=== PATIENT | female | born 1990 | race African-American/Black ===

== ENCOUNTER 2019-05-11 18:51 | Emergency (ER) | payer OTHER, SELFPAY ==
[2019-05-11 19:00] VITALS: BP 117/77; PULSE 99; RESP 18; TEMP 37.5; O2SAT 100
[2019-05-11 21:45] VITALS: BP 120/80; PULSE 98; RESP 20; TEMP 37.3; O2SAT 99
--- NOTE | 2019-05-11 23:52 | ED.FEVER ---
HPI - Fever General Chief Complaint: Fever Stated Complaint: Cold symptoms Time Seen by Provider: 05/11/19 20:43 Source: patient Mode of arrival: ambulatory Limitations: no limitations History of Present Illness HPI Narrative: 28 yo female who presents with c/o cold symptoms starting yesterday. She states she developed runny nose, nasal congestion, cough, and intermittent sore throat yesterday. She also reports dizziness which has resolved. She denies fever, vomiting. She denies sick contacts or recent travel. She is concerned about her symptoms since she has a young child at home. elicited complaint: fever Related Data Home Medications Medication Instructions Recorded Confirmed [id number] fum,uc-govfp-ahh 1 cap PO DAILY 01/05/19 01/05/19 Allergies Allergy/AdvReac Type Severity Reaction Status Date / Time No Known Allergies Allergy Verified 05/11/19 19:19 Review of Systems Review of Systems: All systems reviewed & are unremarkable except as noted in HPI and below Constitutional: Constitutional: Denies chills, Denies fatigue and Denies fever(s) ENT: Reports dizziness, Reports nasal congestion and Reports sore throat Cardiovascular: Cardiovascular: Denies chest pain and Denies rapid heart rate Gastrointestinal: Gastrointestinal: Denies abdominal pain, Denies diarrhea and Denies vomiting Genitourinary: Genitourinary: Denies hematuria and Denies nocturia Musculoskeletal: Musculoskeletal: Reports myalgias PMFSH Past Medical History Medical History (Updated 05/12/19 @ 00:03 by Radha Mchugh MD) Healthy adult Surgical History Surgical History (Updated 05/12/19 @ 00:01 by Radha Mchugh MD) No pertinent past surgical history Social History Social History (Updated 05/12/19 @ 00:01 by Radha Mchugh MD) Smoking status: Never smoker Substance use: never Gender identity (if verbalized by the patient): Female Exam Narrative: Exam Narrative: GENERAL: well-nourished, and in no acute distress. HEAD: Normocephalic, atraumatic EYES: PERRLA and EOMI, conjunctiva clear without discharge EARS: TM's clear bilaterally without erythema or dullness THROAT:Mucous membranes moist, Oropharynx normal without erythema, exudate, peritonsillar swelling or fluctuance NECK: Supple, without lymphadenopathy or mass RESPIRATORY: No respiratory distress, Airway patent, Respirations non-labored, Clear to auscultation without rales, rhonchi or wheeze HEART: Regular rate and rhythm. No murmur heard. Normal peripheral pulses. ABDOMEN: Soft, nontender, nondistended, normal active bowel sounds. No masses. No rebound or guarding, No organomegaly. EXTREMITIES: No edema, normal strength with full range of motion. SKIN: Warm, dry, normal color without rash NEURO: Alert and oriented x3. CN 2-12 grossly intact. No focal deficits. PSYCH: Normal mood and affect. HENMT: General nose exam: Abnormal mucous membranes and turbinates present boggy Course Course Emergency Course: I Discussed with patient that influenza test was negative at this time. Due to early symptoms she request tamiflu as test may be false negative. Vital Signs Vital signs: Vital Signs Temperature 99.5 F 05/11/19 19:00 Pulse Rate 99 05/11/19 19:00 Respiratory Rate 18 05/11/19 19:00 Blood Pressure 117/77 05/11/19 19:00 Pulse Oximetry 100 05/11/19 19:00 Temperature 99.1 F 05/11/19 21:45 Pulse Rate 98 05/11/19 21:45 Respiratory Rate 20 05/11/19 21:45 Blood Pressure 120/80 05/11/19 21:45 Pulse Oximetry 99 05/11/19 21:45 MDM - Fever Lab Data Labs: Influenza A Screen Negative Reference Range: Negative Influenza B Screen Negative Reference Range: Negative Discharge Plan Discharge Clinical Impression: Viral infection Patient Disposition: Home, Self-Care Condition: Stable Instructions: Antibiotic Form, Viral Syndrome (ED
== END 2019-05-11 21:46 | disposition home or self-care (01) ==
PROVIDERS: Emergency Provider General Practice
DX: B34.9 Viral infection, unspecified (principal)
CPT/HCPCS: 87804; 99283

== ENCOUNTER 2020-02-08 09:52 | Outpatient (CLI) | payer OTHER, SELFPAY ==
--- NOTE | 2020-02-08 | ECG_ITS ---
Measurements Intervals [place] Rate: 60 P: 32 CO: 153 QRS: 61 QRSD: 82 T: 46 QT: 370 QTc: 372 Interpretive Statements SINUS RHYTHM WITH SINUS ARRHYTHMIA RSR' IN V1 OR V2, CONSIDER RIGHT VENTRICULAR HYPERTROPHY OR RIGHT VCD BORDERLINE ECG Electronically Signed On 02-08-2020 10:34:21 [employer]URAL HISTORY COLLECTIONS CURATOR by Jeffrey Murphy D.O.
== END 2020-02-08 09:53 | disposition home or self-care (01) ==
PROVIDERS: Visit Provider Obstetrics & Gynecology
DX: O26.90 Pregnancy related conditions, unspecified, unspecified trimester (principal); Z3A.00 Weeks of gestation of pregnancy not specified
CPT/HCPCS: 93005

== ENCOUNTER 2020-06-17 05:38 | Observation (INO) | payer OTHER, SELFPAY ==
--- NOTE | ~2020-06-17 | US_ITS ---
EXAMINATION: US OB limited DATE: 06/17/2020 09:00 INDICATION: Positive fibronectin during third trimester , assess cervical length TECHNIQUE: Real-time ultrasound of the pelvis was performed. The interpreting radiologist was not pre sent for the study. COMPARISON: None. FINDINGS: There is a single living fetus in vertex presentation. The placenta is posterior. car diac activity and movement are noted. heart rate is 154 beats per minute (bpm). The cervi liza length is 2.9 cm. IMPRESSION: 1. Single living fetus in vertex presentation. 2. Cervical length is 2.9 cm. Reviewed, dictated and finalized at location B.
[2020-06-17 06:15] VITALS: BP 99/63; PULSE 101
[2020-06-17 06:32] VITALS: BMI 18.1
--- NOTE | 2020-06-17 06:32 | OBADM ---
This patient, Azucena Medina, admitted to the OB room OB Post 116 for observation. Patient/family oriented to hospital policies and general routines including ID bracelet, bed and alarms, visiting hours, pain management, procedures, bathroom and other care routines, personal items, smoking policy, room service/diet, and visiting hours. Patient/Family are encouraged to report perceived risks to care and to ask questions if they do not understand what they are told or what they should do.
[2020-06-17 06:46] LABS: Add Urine Microscopic? NO; Appearance Urine Clear (Clear); Bilirubin Urine Negative (Negative); Blood Urine Negative (Negative); Color Urine Straw (Yellow); Glucose Urine UA Negative (Negative); Ketones Urine Negative (Negative); Leukocyte Esterase Ur Negative LEU/UL (NEGATIVE); Nitrate Urine Negative (Negative); Protein Urine Negative (Negative); Specific Grav Ur 1.005 (1.001-1.035); Urobilinogen Urine Negative mg/dL (<2.0)
[2020-06-17] MEDS: TERBUTALINE SULFATE 1 MG/ML VIAL 0.25 MG SUB-Q ×2 (07:10→08:23)
--- NOTE | 2020-06-17 07:53 | P.PNOB_ITS ---
OB - Triage/Final Diagnosis Visit Information Date of evaluation: 06/17/20 Reason for evaluation: threatened labor Comments/Additional reasons for admission: I have assessed the risk for this patient, Azucena Medina, and determined that she would benefit from observation care. Evaluation Laboratory results: Laboratory Tests 06/17/20 06:25 Urine Color Straw Urine Appearance Clear Urine pH 7.0 Ur Specific [place] 1.005 Urine Protein Negative Urine Glucose (UA) Negative Urine Ketones Negative Ur Blood (Man) Negative Urine Nitrate Negative Urine Bilirubin Negative Urine Urobilinogen Negative Ur Leukocyte Esterase Negative Vital signs: Vital Signs - 24 hr 06/17/20 06:15 Pulse Rate 101 H Blood Pressure 99/63 L
[2020-06-17 08:09] LABS: Fetal Fibronectin Positive
[2020-06-17] MEDS: NIFEdipine 10 MG CAPSULE PO (09:25)
[2020-06-17] MEDS: BETAMETHASONE SOD PHOS/ACETATE 30 MG/5 ML VIAL 12 MG IM (09:25)
[2020-06-17 09:26] VITALS: BP 72/54; PULSE 106
[2020-06-17 09:27] VITALS: BP 100/49; PULSE 111
== END 2020-06-17 12:05 | disposition home or self-care (01) ==
PROVIDERS: Admitting Provider Obstetrics & Gynecology; Visit Provider Obstetrics & Gynecology
DX: O47.03 False labor before 37 completed weeks of gestation, third trimester (principal); Z3A.32 32 weeks gestation of pregnancy
CPT/HCPCS: 76815; 81003; 82731; 87086; 96372; A9270; G0378; G0379; J0702; J3105

== ENCOUNTER 2020-08-01 07:27 | Inpatient (IN) | payer OTHER, SELFPAY ==
[2020-08-01] VITALS (111 sets, daily range): BP systolic 78–123; BP diastolic 36–90; PULSE 54–168; RESP 15–18; TEMP 36.7–36.9; O2SAT 86–100; BMI 18.6
--- NOTE | 2020-08-01 07:27 | PM.IMHP ---
H&P: HPI History of Present Illness Date/Time: 08/01/20 07:27 29-year-old 2 para 1 whose last menstrual period was 10/13/2019, EDC is 08/08/2020, confirmed by 12 week ultrasound presents at term for induction of labor. Her cervix is favorable. Early ultrasound confirms dates. Risks and benefits of induction reviewed Chief Complaint: mil Review of Systems Review of Systems: All systems reviewed & are unremarkable except as noted in HPI and below PMFSH Past Medical History Medical History Healthy adult Surgical History Surgical History No pertinent past surgical history Family History Family History Grandparent Diabetes mellitus Social History Social History Smoking status: Never smoker Substance use: never Gender identity (if verbalized by the patient): Female Spiritual care concerns: No Meds Home Medications and Allergies Home Medications Medication Instructions Recorded Confirmed Type [id number] fum,do-ajrzl-xso 1 cap PO DAILY 01/05/19 06/17/20 History nifedipine 10 mg PO Q4-6H PRN #60 cap 06/17/20 Rx Allergies Allergy/AdvReac Type Severity Reaction Status Date / Time No Known Allergies Allergy Verified 07/09/20 13:47 Exam Const: General: no acute distress Eyes: General: appearance normal, both eyes and all related structures Neck: Neck: supple and no JVD Thyroid: thyroid normal Resp: Effort & Inspection: normal respiratory effort Auscultation: clear to auscultation bilaterally Cardio: Rate: regular rate Rhythm: regular rhythm GI: Inspection: non-distended GI Palp: Yes Soft to palpation, No Tenderness to palpation present (GI) and No Guarding due to palpation present (GI) Auscultation: normal bowel sounds : External Female Exam: normal external appearance Speculum Exam - Vagina: normal appearance of the vagina Bimanual exam- vagina & uterus: enlarged ( gravid soft uterus. heart tones are reassuring) Skin: General skin exam: no rashes or lesions noted Extrem: General: normal to inspection and no edema Psych: Mental Status: mental status grossly normal Affect: normal affect Assessment and Plan Additional Plan impression: 39 week with favorable cervix Plan: Medical induction of labor. Spontaneous vaginal is expected. She is an epidural candidate
--- NOTE | 2020-08-01 07:48 | WPDOBADMIT ---
Obstetrics - Admit Note Admission Note: record reviewed. No pertinent additions to the history and/or any subsequent changes in the physical findings that are not consistent with the expected course of the were found. Additions to the history and/or subsequent changes in the physical findings follow. None. cervix . AROM clear. FHTs reassuring.
[2020-08-01] MEDS: OXYTOCIN 30 UNITS/NS 500 ML 30 UNITS/500 ML BAG IV CONT (08:00)
[2020-08-01] MEDS: LACTATED RINGERS 1,000 ML 125 ML IV CONT ×3 (08:00→10:13)
[2020-08-01 08:07] LABS: Basophils Percent Auto 0.4 % (0.2-1.2); Eosinophils Absolute Auto 0.3 K/mm3 (0-0.3); Eosinophils Percent Auto 5.3 % (0-4.4); Hematocrit 32.1 % (37.0-47.0); Hemoglobin 10.2 g/dL (12.0-15.0); Immature Granulocyte Absolute 0.05 K/mm3 (0.00-0.031); Lymphocytes Percent Auto 29.4 % (18.3-44.2); Mean Corpuscular HGB Conc 31.8 g/dl (32-36); Mean Corpuscular Hemoglobin 25.2 pg (26-34); Mean Corpuscular Volume 79.3 fl (80-100); Mean Platelet Volume 10.9 fl (7.4-10.4); Monocytes Absolute Auto 0.7 K/mm3 (0.1-0.6); Monocytes Percent Auto 13.5 % (2.6-8.5); Neutrophils Absolute Auto 2.6 K/mm3 (1.3-6.7); Neutrophils Percent Auto 50.4 % (45.5-73.1); Platelet Count Result 171 k/mm3 (150-375); Red Blood Count 4.05 M/mm3 (4.2-5.4); Red Cell Distribution Width 16.4 % (11.5-14.5); White Blood Count 5.1 K/mm3 (4.5-10.0)
--- NOTE | 2020-08-01 08:25 | LDADM ---
This patient, Azucena Medina, was admitted to Labor/Delivery/Recovery 107 on 08/01/20 at 07:27. Plans for labor, pain management and were discussed with patient. Patient/family oriented to hospital policies and general routines including ID bracelet, bed and alarms, visiting hours, pain management, procedures, bathroom and other care routines, personal items, smoking policy, room service/diet and guest tray routines, infant security routines, and visiting hours. Patient/Family are encouraged to report perceived risks to care and to ask questions if they do not understand what they are told or what they should do. See OBIX for further documentation.
--- NOTE | 2020-08-01 10:05 | WPDANESEPPF ---
Anes - Initial Pre Proc Eval Procedure: Labor Epidural Date/Time: 08/01/20 10:05 Surgeon: Andrea Goins MD Pre Op Diagnosis: iol Patient Data Age: 30 Gender: F Height: Weight: Last Vital Signs Pulse 75 08/01/20 09:16 BP 107/73 08/01/20 09:16 Allergies Allergy/AdvReac Type Severity Reaction Status Date / Time No Known Allergies Allergy Verified 07/09/20 13:47 Home Medications Medication Instructions Recorded Confirmed Type [id number] fum,mz-yjkyh-hvl 1 cap PO DAILY 01/05/19 06/17/20 History nifedipine 10 mg PO Q4-6H PRN #60 cap 06/17/20 Rx Laboratory Tests 08/01/20 08/01/20 08/01/20 07:58 07:58 07:58 WBC 5.1 K/mm3 K/mm3 (4.5-10.0) RBC 4.05 M/mm3 L M/mm3 (4.2-5.4) Hgb 10.2 g/dL L g/dL (12.0-15.0) Hct 32.1 % L % (37.0-47.0) MCV 79.3 fl L fl (80-100) MCH 25.2 pg L pg (26-34) MCHC 31.8 g/dl L g/dl (32-36) RDW 16.4 % H % (11.5-14.5) Plt Count 171 k/mm3 k/mm3 (150-375) MPV 10.9 fl H fl (7.4-10.4) Immature Gran % (Auto) 1.0 % H % (0-0.5) Neut % (Auto) 50.4 % % (45.5-73.1) Lymph % (Auto) 29.4 % % (18.3-44.2) [place] % (Auto) 13.5 % H % (2.6-8.5) Eos % (Auto) 5.3 % H % (0-4.4) Baso % (Auto) 0.4 % % (0.2-1.2) Lymph # (Auto) 1.50 K/mm3 K/mm3 (0.9-3.2) [place] # (Auto) 0.7 K/mm3 H K/mm3 (0.1-0.6) Eos # (Auto) 0.3 K/mm3 K/mm3 (0-0.3) Baso # (Auto) 0.0 K/mm3 K/mm3 (0.0-0.1) Abs Immat Gran (auto) 0.05 K/mm3 H K/mm3 (0.00-0.031) Absolute Neuts (auto) 2.6 K/mm3 K/mm3 (1.3-6.7) Absolute Nucleated RBC 0.0 K/mm3 K/mm3 (0.0-0.012) Nucleated RBC % 0.0 % % (0.0-0.2) RPR Pending Blood Type O Positive Antibody Screen Negative Patient hx anesthesia problems: none Family hx anesthesia problems: none PMFSH Past Medical History Medical History (Updated 08/01/20 @ 10:06 by Gregory Marcano CRNA) Healthy adult Surgical History Surgical History No pertinent past surgical history Family History Family History Grandparent Diabetes mellitus Social History Social History Smoking status: Never smoker Substance use: never Gender identity (if verbalized by the patient): Female Spiritual care concerns: No Anes - Eval Final PreProcedure Day of Procedure 08/01/20 10:05 Informed Consent: The patient's anesthetic plan and its attendant risks and benefits were discussed with the patient/family/POA. Questions were solicited and answers provided to the satisfaction of the patient/family/POA.
--- NOTE | 2020-08-01 11:31 | P.PNOB_ITS ---
OB - PN: Subj Subjective Date/time seen: 08/01/20 11:31 rn exam 5 cm fhts reassuring OB - PN: Obj Data Labs CBC & Chem 7: 08/01/20 07:58 Labs: Laboratory Results - last 24 hr 08/01/20 08/01/20 07:58 07:58 WBC 5.1 RBC 4.05 L Hgb 10.2 L Hct 32.1 L MCV 79.3 L MCH 25.2 L MCHC 31.8 L RDW 16.4 H Plt Count 171 MPV 10.9 H Immature Gran % (Auto) 1.0 H Neut % (Auto) 50.4 Lymph % (Auto) 29.4 [place] % (Auto) 13.5 H Eos % (Auto) 5.3 H Baso % (Auto) 0.4 Lymph # (Auto) 1.50 [place] # (Auto) 0.7 H Eos # (Auto) 0.3 Baso # (Auto) 0.0 Abs Immat Gran (auto) 0.05 H Absolute Neuts (auto) 2.6 Absolute Nucleated RBC 0.0 Nucleated RBC % 0.0 Blood Type O Positive Antibody Screen Negative OB - PN A/P Time Spent With Patient Time: Total time spent is greater than 50% in coordination of care (as documented) at patient's floor/unit and/or counseling patient:
--- NOTE | 2020-08-01 14:35 | PM.OBPRVD ---
OB - Delivery Note Procedure Delivery date: 08/01/20 Procedure: mil Intrapartal events: None Induction method: AROM Delivery augmentation: pitocin Delivery monitor: external FHT Route of delivery: Episiotomy description: None Laceration Description: None Specimen: No Quantitative Blood Loss (ml): 58 Anesthesia type: Epidural Disposition: floor Complications: nuchal x 1 Baby Date of : 08/01/20 Time of : 14:28 Weeks of gestation at delivery: 39 gender: Male presentation: vertex position: Right Occiput Anterior Placenta delivery description: Spontaneous cord vessel description: 3 Vessels and Nuchal Cord score one minute: 9 score five minutes: 9
[2020-08-01] MEDS: OXYTOCIN 30 UNITS/NS 500 ML 30 UNITS/500 ML BAG 125 UNITS IV CONT (15:02)
--- NOTE | 2020-08-01 16:54 | PC.NURSE ---
Patient transferred to post room #284 via wheelchair. Support person present. Oriented to unit, room, information board, rooming in, admission packet and security measures. Patient verbalizes understanding.
[2020-08-01] MEDS: IBUPROFEN 600 MG TABLET (17:25)
[2020-08-02] MEDS: IBUPROFEN 600 MG TABLET PO ×2 (00:19→09:26)
[2020-08-02 05:10] VITALS: BP 116/78; PULSE 57; RESP 12; TEMP 36.8; O2SAT 100
[2020-08-02 05:47] LABS: Hematocrit 28.5 % (37.0-47.0); Hemoglobin 8.7 g/dL (12.0-15.0)
--- NOTE | 2020-08-02 06:38 | PM.OBPNVD ---
OB - PN: Subj Subjective Date/time seen: 08/02/20 06:38 Patient comments: no complaints and pain well controlled OB - PN: Obj Data Labs CBC & Chem 7: 08/02/20 05:17 Labs: Laboratory Results - last 24 hr 08/01/20 08/01/20 08/02/20 07:58 07:58 05:17 WBC 5.1 RBC 4.05 L Hgb 10.2 L 8.7 L Hct 32.1 L 28.5 L MCV 79.3 L MCH 25.2 L MCHC 31.8 L RDW 16.4 H Plt Count 171 MPV 10.9 H Immature Gran % (Auto) 1.0 H Neut % (Auto) 50.4 Lymph % (Auto) 29.4 [place] % (Auto) 13.5 H Eos % (Auto) 5.3 H Baso % (Auto) 0.4 Lymph # (Auto) 1.50 [place] # (Auto) 0.7 H Eos # (Auto) 0.3 Baso # (Auto) 0.0 Abs Immat Gran (auto) 0.05 H Absolute Neuts (auto) 2.6 Absolute Nucleated RBC 0.0 Nucleated RBC % 0.0 Blood Type O Positive Antibody Screen Negative OB - PN A/P Plan day: 1 Plan: routine care, discharge home and follow up 6 weeks Time Spent With Patient Time: Total time spent is greater than 50% in coordination of care (as documented) at patient's floor/unit and/or counseling patient: Time with patient: less than 15 minutes Review of Systems Review of Systems: All systems reviewed & are unremarkable except as noted in HPI and below Exam Const: General: no acute distress Eyes: General: appearance normal, both eyes and all related structures Neck: Neck: supple and no JVD Thyroid: thyroid normal Resp: Effort & Inspection: normal respiratory effort Auscultation: clear to auscultation bilaterally Cardio: Rate: regular rate Rhythm: regular rhythm GI: Inspection: non-distended GI Palp: Yes Soft to palpation, No Tenderness to palpation present (GI) and No Guarding due to palpation present (GI) Auscultation: normal bowel sounds : General: Yes bladder normal to palpation External Female Exam: normal external appearance Speculum Exam - Vagina: normal vaginal discharge and No vaginal bleeding Speculum Exam - Cervix: nontender Bimanual exam- vagina & uterus: bladder normal to palpation and No Cervical tenderness present OB/external & speculum: No vaginal bleeding Skin: General skin exam: no rashes or lesions noted Extrem: General: normal to inspection and no edema Psych: Mental Status: mental status grossly normal Affect: normal affect
--- NOTE | 2020-08-02 06:39 | PM.DS ---
DS: Admitting Diagnosis Admitting Diagnosis Admitting Diagnosis: term iup DS: Summary Hospital Course Hospital Course: Patient was admitted for induction of labor. She underwent successful spontaneous vaginal delivery. Her hospital course was unremarkable. She was bottle feeding, eating, ambulating, voiding without difficulty and general without complaints. Time Spent with Patient Time attestation: Total time spent providing and/or coordinating discharge services: Exam Const: General: no acute distress Eyes: General: appearance normal, both eyes and all related structures Neck: Neck: supple and no JVD Thyroid: thyroid normal Resp: Effort & Inspection: normal respiratory effort Auscultation: clear to auscultation bilaterally Cardio: Rate: regular rate Rhythm: regular rhythm GI: Inspection: non-distended GI Palp: Yes Soft to palpation, No Tenderness to palpation present (GI) and No Guarding due to palpation present (GI) Auscultation: normal bowel sounds : General: Yes bladder normal to palpation External Female Exam: normal external appearance Speculum Exam - Vagina: normal vaginal discharge and No vaginal bleeding Speculum Exam - Cervix: nontender Bimanual exam- vagina & uterus: bladder normal to palpation and No Cervical tenderness present OB/external & speculum: No vaginal bleeding Skin: General skin exam: no rashes or lesions noted Extrem: General: normal to inspection and no edema Psych: Mental Status: mental status grossly normal Affect: normal affect DS: Data Data Completed and Pending Labs on day of discharge: Labs from last 24 hours 08/02/20 08/01/20 08/01/20 05:17 07:58 07:58 WBC RBC Hgb 8.7 L Hct 28.5 L MCV MCH MCHC RDW Plt Count MPV Immature Gran % (Auto) Neut % (Auto) Lymph % (Auto) [place] % (Auto) Eos % (Auto) Baso % (Auto) Lymph # (Auto) [place] # (Auto) Eos # (Auto) Baso # (Auto) Abs Immat Gran (auto) Absolute Neuts (auto) Absolute Nucleated RBC Nucleated RBC % RPR Pending Blood Type O Positive Antibody Screen Negative 08/01/20 07:58 WBC 5.1 RBC 4.05 L Hgb 10.2 L Hct 32.1 L MCV 79.3 L MCH 25.2 L MCHC 31.8 L RDW 16.4 H Plt Count 171 MPV 10.9 H Immature Gran % (Auto) 1.0 H Neut % (Auto) 50.4 Lymph % (Auto) 29.4 [place] % (Auto) 13.5 H Eos % (Auto) 5.3 H Baso % (Auto) 0.4 Lymph # (Auto) 1.50 [place] # (Auto) 0.7 H Eos # (Auto) 0.3 Baso # (Auto) 0.0 Abs Immat Gran (auto) 0.05 H Absolute Neuts (auto) 2.6 Absolute Nucleated RBC 0.0 Nucleated RBC % 0.0 RPR Blood Type Antibody Screen Discharge Plan Discharge Attending physician on discharge: Andrea Goins Discharging Clinician: Andrea Goins Patient Disposition: Home, Self-Care Activity: may shower, no straining and pelvic rest Diet: heart healthy Wound Care Instructions: follow printed instructions Patient Instructions: Antibiotic Form Stand Alone Forms: General Discharge Information Follow-up/Referrals: Andrea Goins MD [Physician] - Discharge Medications: Continued [id number]-[id number] fum,wb-hmryr-bum 32-1.25-110 mg Capsule 1 cap PO DAILY RF: 0 Discontinued nifedipine 10 mg Capsule 10 mg PO Q4-6H PRN (Reason: CONTRACTIONS ) Qty: 60 RF: 0 Date of admission: 08/01/20 07:27 Primary Care Provider: PHYSICIAN,DISTRIBUTION DISPATCHER Admitting Provider: Andrea Goins Attending physician on admission: Andrea Goins Condition: Stable
[2020-08-02 06:46] LABS: Rapid Plasma Reagin Non-Reactive (NonReactive)
[2020-08-02 09:00] VITALS: BP 99/72; PULSE 64; RESP 18; TEMP 36.7; O2SAT 100
[2020-08-02] MEDS: POLYSACCHARIDE IRON COMPLEX 150 MG CAPSULE PO (09:26)
[2020-08-02] MEDS: DOCUSATE SODIUM 100 MG CAPSULE PO (09:26)
--- NOTE | 2020-08-02 09:47 | WPDANLDPN2 ---
Anes-Prog Note L&D Date/Time: 08/02/20 09:47 Comfortable throughout: labor and delivery Neuraxial method: epidural Epidural/Spinal procedure site: clean & non-tender Neuro status: Neuro function grossly intact. Cardiovascular status: normal Respiratory status: normal Airway patency: baseline Mental status: baseline Post-Op hydration status: normal Vital Signs: Last Vital Signs Temp 36.8 C 08/02/20 05:10 Pulse 57 L 08/02/20 05:10 Resp 12 08/02/20 05:10 BP 116/78 08/02/20 05:10 Pulse Ox 100 08/02/20 05:10 Pain score (VAS): 03/17 Post-procedural complaints: none Patient feedback: Patient satisfied with anesthetic care.
[2020-08-02 11:30] VITALS: BP 103/73; PULSE 69; RESP 18; TEMP 36.7; O2SAT 100
[2020-08-05 14:38] VITALS: BP 106/67; PULSE 69; RESP 16; TEMP 36.8; O2SAT 99
== END 2020-08-02 19:15 | disposition home or self-care (01) | DRG 560 ==
LOC: ANHLDR 07:31 → ANHOB2 16:55
PROVIDERS: Admitting Provider Obstetrics & Gynecology; Visit Provider Obstetrics & Gynecology
DX: O69.81X0 Labor and delivery complicated by cord around neck, without compression, not applicable or unspecified (principal); Z37.0 Single live birth; Z3A.39 39 weeks gestation of pregnancy; O36.8330 Maternal care for abnormalities of the fetal heart rate or rhythm, third trimester, not applicable or unspecified
CPT/HCPCS: 36415; 85014; 85018; 85025; 86592; 86850; 86900; 86901; A9270; J2590; J7120

== ENCOUNTER 2022-05-30 14:22 | Emergency (ER) | payer OTHER, SELFPAY ==
--- NOTE | ~2022-05-30 | XR_ITS ---
XR chest 2V DATE: 05/30/2022 16:26 INDICATION: Left-sided chest pain for one month TECHNIQUE: PA and lateral views COMPARISON: None FINDINGS: Normal heart size. No hilar or mediastinal enlargement. No pulmonary infiltrate or consolid ation, pleural effusion or pulmonary vascular congestion or pneumothorax. Mild thoracic dextroscoliosis. IMPRESSION: No active cardiopulmonary disease Reviewed, dictated and finalized at location A.
[2022-05-30 14:54] VITALS: BP 118/86; PULSE 83; RESP 16; TEMP 36.6; O2SAT 98
--- NOTE | 2022-05-30 14:57 | ECG_ITS ---
Measurements Intervals [place] Rate: 85 P: 73 CT: 158 QRS: 64 QRSD: 82 T: 53 QT: 326 QTc: 388 Interpretive Statements SINUS RHYTHM INCOMPLETE RIGHT BUNDLE BRANCH BLOCK BASELINE ARTIFACT- I, III, AVL BORDERLINE ECG COMPARED TO ECG 02/08/2020 10:17:37 NO SIGNIFICANT CHANGES Electronically Signed On 05-30-2022 16:34:52 CDT by Jeffrey FISCHER
[2022-05-30 16:34] LABS: Basophils Percent Auto 0.6 % (0.2-1.2); Eosinophils Absolute Auto 0.3 K/mm3 (0-0.3); Eosinophils Percent Auto 5.1 % (0-4.4); Hematocrit 38.7 % (37.0-47.0); Hemoglobin 12.3 g/dL (12.0-15.0); Immature Granulocyte Absolute 0.01 K/mm3 (0.00-0.031); Immature Granulocyte Percent A 0.2 % (0-0.5); Lymphocytes Absolute Auto 1.52 K/mm3 (0.9-3.2); Mean Corpuscular HGB Conc 31.8 g/dl (32-36); Mean Corpuscular Hemoglobin 26.4 pg (26-34); Mean Platelet Volume 10.4 fl (7.4-10.4); Monocytes Absolute Auto 0.6 K/mm3 (0.1-0.6); Neutrophils Absolute Auto 2.5 K/mm3 (1.3-6.7); Neutrophils Percent Auto 50.1 % (45.5-73.1); Platelet Count Result 283 k/mm3 (150-375); Red Blood Count 4.66 M/mm3 (4.2-5.4); Red Cell Distribution Width 14.1 % (11.5-14.5); White Blood Count 4.9 K/mm3 (4.5-10.0)
--- NOTE | 2022-05-30 16:42 | PC.NURSE ---
Pt educated on vaginal swab collection at this time and shown to bathroom. Pt verbalized understanding at this time.
[2022-05-30 16:44] LABS: Alanine Aminotransferase 24 U/L (6-35); Albumin Level 4.3 g/dL (3.5-5.1); Alkaline Phosphatase 78 U/L (38-126); Anion Gap 8 mmol/L (8-16); Aspartate Amino Transferase 32 U/L (14-36); Bilirubin,Total 0.8 mg/dL (0.2-1.3); Blood Urea Nitrogen 12 mg/dL (7-17); Calcium 9.1 mg/dL (8.4-10.2); Carbon Dioxide 26 mmol/L (22-30); Chloride 105 mmol/L (98-107); Estimated CRCL calculation 50 ml/min; Estimated Glomerular Filt Rate > 60; Glucose 89 mg/dL (65-110); Potassium 3.7 mmol/L (3.4-5.0); Sodium 139 mmol/L (137-145)
--- NOTE | 2022-05-30 16:44 | ED.GENADULT ---
HPI - General Adult General Chief complaint: [employer] Stated complaint: chest pain/vaginal discharge Time Seen by Provider: 05/30/22 16:00 History of Present Illness HPI narrative: 32-year-old female no medical problems presents to the emergency room with multiple complaints. Patient states that she has experienced intermittent chest pain for 1 month. States pain occasionally will radiate to the back. Denies any shortness of breath or dizziness. States the pain last up to 30 minutes at a time. Pain is not aggravated by lying flat or eating. Patient also complains of clear foul-smelling vaginal discharge for 3 weeks. States there is concern for an STI. Related Data Home Medications Medication Instructions Recorded Confirmed [id number] fm,ps 32 1 cap PO DAILY 01/05/19 06/17/20 mg-folic acid 1.25 mg-dha 110 mg capsule Allergies Allergy/AdvReac Type Severity Reaction Status Date / Time No Known Allergies Allergy Verified 05/30/22 15:51 Review of Systems Review of Systems: CONSTITUTIONAL: Denies fever, chills, or sweats. EYES: Denies visual changes, redness, or discharge. ENT: Denies rhinorrhea, congestion, sore throat, or otalgia. CARDIOVASCULAR: Reports chest pain RESPIRATORY: Denies cough or dyspnea. GASTROINTESTINAL: Denies abdominal pain, nausea, vomiting, or diarrhea. GENITOURINARY: Reports vaginal discharge SKIN: Denies rash or itching. MUSCULOSKELETAL: Denies back pain, joint pain, or myalgia. NEUROLOGIC: Denies headache, numbness, dizziness, or weakness. PSYCHIATRIC: Denies anxiety or depression. PMFSH Past Medical History Medical History Healthy adult Surgical History Surgical History No pertinent past surgical history Family History Family History Grandparent Diabetes mellitus Social History Social History Smoking status: Never smoker Substance use: never Gender identity (if verbalized by the patient): Female Spiritual care concerns: No Exam Narrative: GENERAL: Well-appearing, well-nourished, no physical limitations, and in no acute distress. HEAD: Normocephalic, atraumatic. EYES: Conjunctivae normal, PERRLA and EOMI. CHEST: Clear to auscultation. No respiratory distress. No wheezes rales or rhonchi. No tenderness. HEART: Regular rate and rhythm. No murmur heard. Normal peripheral pulses. ABDOMEN: Soft, nontender, nondistended, normal active bowel sounds. : Deferred female exam. EXTREMITIES: Normal range of motion. No edema. No clubbing or cyanosis SKIN: Warm, dry, no rash. No noted wounds NEURO: No focal deficits. Alert and oriented x3. MAEW. CN's II-XI intact bilaterally, normal gait PSYCH: Cooperative. Normal mood and affect. Course Vital Signs Vital signs: Vital Signs Temperature 36.6 C 05/30/22 14:54 Pulse Rate 83 05/30/22 14:54 Respiratory Rate 16 05/30/22 14:54 Blood Pressure 118/86 05/30/22 14:54 Pulse Oximetry 98 05/30/22 14:54 Temperature 36.6 C 05/30/22 14:54 Pulse Rate 83 05/30/22 14:54 Respiratory Rate 16 05/30/22 14:54 Blood Pressure 118/86 05/30/22 14:54 Pulse Oximetry 98 05/30/22 14:54 Medical Decision Making MDM Narrative Medical decision making narrative: 32-year-old female no medical problems presenting with multiple medical complaints. Patient stated that she had been having intermittent chest pain for over 1 month. Described the pain as a sharp stabbing pain that radiated into her back and was present for up to 30 minutes at a time. EKG showed no signs of active ischemia. Troponin was negative. Lab work was unremarkable. Chest pain is likely related to GERD. Recommended patient take Maalox when she was experiencing the symptoms and follow-up with her PCP. Patient was als
[2022-05-30 16:55] LABS: Troponin I < 0.012 ng/mL (0.000-0.034)
[2022-05-30 17:00] LABS: Appearance Urine Clear (Clear); Bacteria Urine None Seen /hpf; Bilirubin Urine Negative (Negative); Blood Urine Negative (Negative); Color Urine Yellow (Yellow); Glucose Urine UA Negative (Negative); Ketones Urine Trace mg/dL (Negative); Leukocyte Esterase Ur 1+ LEU/UL (Negative); Need Manual Microscopic Reviewed; Nitrate Urine Negative (Negative); Non Pathogenic Casts 0-2; Protein Urine 1+ mg/dL (Negative); RBC Urine 0-2 /hpf (0-2); Specific Grav Ur 1.024 (1.001-1.035); Squamous Epithelial Cell Urine None seen /hpf (Few); Urobilinogen Urine 0.2 mg/dL (<2.0); pH Urine 5.5 (5.0-9.0)
[2022-05-30 17:17] LABS: Add Urine Microscopic? YES
[2022-05-30 18:03] VITALS: BP 101/74; PULSE 69; RESP 16; TEMP 37.1; O2SAT 100
[2022-05-30] MEDS: cefTRIAXone 1 GM VIAL 0.5 GM IM (18:18)
[2022-05-30] MEDS: metroNIDAZOLE 250 MG TABLET 2000 MG PO (18:18)
[2022-05-30] MEDS: WATER, STERILE FOR INJECTION 10 ML VIAL XX (18:18)
== END 2022-05-30 18:31 | disposition home or self-care (01) ==
PROVIDERS: Emergency Provider Nurse Practitioner Family
DX: K21.9 Gastro-esophageal reflux disease without esophagitis (principal); N89.8 Other specified noninflammatory disorders of vagina; Z72.51 High risk heterosexual behavior
CPT/HCPCS: 36415; 71046; 80053; 81001; 81025; 84484; 85025; 87086; 87491; 87591; 93005; 96372; 99283; A9270; J0696

== ENCOUNTER 2023-06-17 07:08 | Inpatient (IN) | payer OTHER, SELFPAY ==
[2023-06-17] VITALS (67 sets, daily range): BP systolic 92–129; BP diastolic 50–88; PULSE 64–252; RESP 16–18; TEMP 36.6–36.9; O2SAT 96–100
--- NOTE | 2023-06-17 07:29 | PM.IMHP ---
H&P: HPI History of Present Illness Date/Time: 06/17/23 07:29 Chief Complaint: term with positive group B strep Narrative: 33-year-old 3 para 2 at 38 weeks gestation with positive group B strep for induction of labor. has been uncomplicated. The cervix is favorable PMFSH Past Medical History Medical History Healthy adult Surgical History Surgical History No pertinent past surgical history Family History Family History Grandparent Diabetes mellitus Social History Social History Smoking status: Never smoker Substance use: never Gender identity (if verbalized by the patient): Female Spiritual care concerns: No Meds Home Medications and Allergies Home Medications Medication Instructions Recorded Confirmed Type No Home Medications 05/24/23 05/24/23 History Allergies Allergy/AdvReac Type Severity Reaction Status Date / Time No Known Allergies Allergy Verified 05/24/23 15:29 Exam Const: General: cooperative, healthy appearing and comfortable Nutritional Appearance: average body habitus Orientation/consciousness: oriented to person, oriented to place and oriented to time Resp: Effort & Inspection: normal respiratory effort Cardio: Rate: regular rate Rhythm: regular rhythm Heart sounds: S1 normal heart sound present and S2 normal heart sound present GI: Inspection: normal to inspection ( soft gravid uterus) : External Female Exam: normal external appearance Speculum Exam - Vagina: normal appearance of the vagina Speculum Exam - Cervix: normal appearance of the cervix ( cervix 4/75/1. FHTs were reassuring) Assessment and Plan Assessment and plan (1) Term : Code(s): Z34.90 - Encounter for supervision of normal , unspecified, unspecified trimester Status: Acute (2) Positive testing for group B Streptococcus: Code(s): B95.1 - Streptococcus, group B, as the cause of diseases classified elsewhere Status: Acute Plan medical induction of labor. Group B strep prophylaxis. Spontaneous vaginal delivery expected. She is an epidural candidate
[2023-06-17] MEDS: AMPICILLIN 2 GM/NS 100 ML 2 GM/100 ML BAG IVPB (07:45)
[2023-06-17 07:47] LABS: Basophils Percent Auto 0.5 % (0.2-1.2); Eosinophils Absolute Auto 0.3 K/mm3 (0-0.3); Eosinophils Percent Auto 4.6 % (0-4.4); Hematocrit 30.5 % (37.0-47.0); Hemoglobin 9.4 g/dL (12.0-15.0); Immature Granulocyte Absolute 0.05 K/mm3 (0.00-0.031); Immature Granulocyte Percent A 0.8 % (0-0.5); Lymphocytes Absolute Auto 1.21 K/mm3 (0.9-3.2); Lymphocytes Percent Auto 20.4 % (18.3-44.2); Mean Corpuscular HGB Conc 30.8 g/dl (32-36); Mean Corpuscular Hemoglobin 22.8 pg (26-34); Mean Platelet Volume 11.9 fl (7.4-10.4); Monocytes Absolute Auto 0.9 K/mm3 (0.1-0.6); Monocytes Percent Auto 15.7 % (2.6-8.5); Neutrophils Absolute Auto 3.4 K/mm3 (1.3-6.7); Platelet Count Result 176 k/mm3 (150-375); Red Blood Count 4.12 M/mm3 (4.2-5.4); Red Cell Distribution Width 15.4 % (11.5-14.5); White Blood Count 5.9 K/mm3 (4.5-10.0)
[2023-06-17 08:02] LABS: Platelet Estimate Adequate (Adequate); Poikilocytosis 1+
--- NOTE | 2023-06-17 08:02 | LDADM ---
This patient, Azucena Medina, was admitted to Labor/Delivery/Recovery 104 on 06/17/23 at 07:08. Plans for labor, pain management and were discussed with patient. Patient/family oriented to hospital policies and general routines including ID bracelet, bed and alarms, visiting hours, pain management, procedures, bathroom and other care routines, personal items, smoking policy, room service/diet and guest tray routines, infant security routines, and visiting hours. Patient/Family are encouraged to report perceived risks to care and to ask questions if they do not understand what they are told or what they should do. See OBIX for further documentation.
[2023-06-17 08:03] LABS: Schistocytes Rare; Tear Drop Cells 1+
[2023-06-17] MEDS: LACTATED RINGERS 1,000 ML 125 ML IV CONT ×2 (08:28→12:27)
[2023-06-17 08:39] LABS: Rubella IgG Antibody 44.5 IU/ML
[2023-06-17 09:01] LABS: Rapid Plasma Reagin Non-Reactive (NonReactive)
[2023-06-17] MEDS: OXYTOCIN 30 UNITS/NS 500 ML 30 UNITS/500 ML BAG IV CONT (10:32)
--- NOTE | 2023-06-17 11:45 | WPDANESEPP ---
Anes - Eval Pre Procedure Procedure: labor epidural Date/Time: 06/17/23 11:45 Surgeon: Matilde Miranda Preop Diagnosis: Pain during labor Pre Op Diagnosis: IOL Patient Data Age: 33 Gender: F Height: 1.65 m Weight: 54.5 kg Last Vital Signs Temp 36.9 C 06/17/23 10:00 Pulse 85 06/17/23 08:02 BP 108/74 06/17/23 08:02 O2 Del Method Room Air 06/17/23 07:59 Allergies Allergy/AdvReac Type Severity Reaction Status Date / Time No Known Allergies Allergy Verified 05/24/23 15:29 Home Medications Medication Instructions Recorded Confirmed Type No Home Medications 05/24/23 05/24/23 History Laboratory Tests 06/17/23 07:39 WBC 5.9 K/mm3 (4.5-10.0) RBC 4.12 L M/mm3 (4.2-5.4) Hgb 9.4 L g/dL (12.0-15.0) Hct 30.5 L % (37.0-47.0) MCV 74.0 L fl (80-100) MCH 22.8 L pg (26-34) MCHC 30.8 L g/dl (32-36) RDW 15.4 H % (11.5-14.5) Plt Count 176 k/mm3 (150-375) MPV 11.9 H fl (7.4-10.4) Immature Gran % (Auto) 0.8 H % (0-0.5) Neut % (Auto) 58.0 % (45.5-73.1) Lymph % (Auto) 20.4 % (18.3-44.2) [place] % (Auto) 15.7 H % (2.6-8.5) Eos % (Auto) 4.6 H % (0-4.4) Baso % (Auto) 0.5 % (0.2-1.2) Lymph # (Auto) 1.21 K/mm3 (0.9-3.2) [place] # (Auto) 0.9 H K/mm3 (0.1-0.6) Eos # (Auto) 0.3 K/mm3 (0-0.3) Baso # (Auto) 0.0 K/mm3 (0.0-0.1) Abs Immat Gran (auto) 0.05 H K/mm3 (0.00-0.031) Absolute Neuts (auto) 3.4 K/mm3 (1.3-6.7) Absolute Nucleated RBC 0.000 K/mm3 (0.0-0.012) Nucleated RBC % 0.0 % (0.0-0.2) Platelet Estimate Adequate (Adequate) Poikilocytosis 1+ Tear Drop Cells 1+ Schistocytes Rare RPR Non-reactive (NonReactive) Rubella IgG Antibody 44.5 IU/ML (10 - ) Blood Type O Positive Antibody Screen Negative Patient hx anesthesia problems: none Family hx anesthesia problems: none Results Review: All pre-operative results and documents have been reviewed as part of the pre-operative evaluation. [facility] Past Medical History Medical History Healthy adult Surgical History Surgical History No pertinent past surgical history Family History Family History Grandparent Diabetes mellitus Social History Social History Smoking status: Never smoker Substance use: never Do You Feel Safe in your Home?: Yes Lack of Transportation: No Lack of Food: Never True Current Housing: I Have Housing Concerned About Future Housing: No Difficulty Paying Gas/Electric Bills: No Difficulty Paying for Meds: No Currently Unemployed: No Education: High School Diploma/GED Difficulty w/ Childcare or Family Care: No Gender identity (if verbalized by the patient): Female Spiritual care concerns: No Exam Day of Procedure 06/17/23 11:45 Patient weight: normal Heart: regular rate and rhythm Lungs: normal air movement Airway: Mallampati scale class II Neurological: alert and oriented
--- NOTE | 2023-06-17 11:47 | PM.OBPNLAB ---
Pain Control Date/time seen: 06/17/23 11:47 Pain control: tolerating well and epidural Pelvic Exam Dilation (cm): 4 Effacement (%): 75 station: -2 Amniotic membrane status: Leaking Contractions Monitor mode: External
[2023-06-17] MEDS: AMPICILLIN 1 GM/NS 50 ML 1 GM/50 ML BAG IVPB (12:07)
--- NOTE | 2023-06-17 14:02 | PM.OBPRVD ---
OB - Vaginal Delivery Note Procedure Delivery date: 06/17/23 Events: Elective Induction of Labor Induction method: AROM Delivery augmentation: Pitocin Delivery monitor: External FHT Route of delivery: Episiotomy description: None Laceration Description: None Specimen: No Quantitative Blood Loss (ml): 61 Anesthesia type: Epidural Disposition: Floor Narrative: amp x 2 for gbs Baby Date of : 06/17/23 Time of : 13:55 Weeks of gestation at delivery: 39 Infant gender: Female presentation: vertex position: Right Occiput Anterior Placenta delivery description: Spontaneous Cord Vessel Description: 3 Vessels score one minute: 9 score five minutes: 9
--- NOTE | 2023-06-17 14:03 | PM.DS ---
DS: Admitting Diagnosis Discharge Date 06/19/2023 Admitting Diagnosis Term with positive group B strep DS: Discharge Diagnosis Discharge Diagnosis (1) Positive testing for group B Streptococcus: Code(s): B95.1 - Streptococcus, group B, as the cause of diseases classified elsewhere Status: Acute (2) Term : Code(s): Z34.90 - Encounter for supervision of normal , unspecified, unspecified trimester Status: Acute DS: Summary Hospital Course Reason for hospitalization: patient was admitted for induction of labor on 06/17/2023 and underwent spontaneous vaginal delivery with epidural anesthesia and adequate treatment for group B strep Hospital Course: patient's hospital course unremarkable. She remained afebrile. She was up, voiding without difficulty, in review diet, ambulating, generally without complaints. No Time Spent with Patient Time attestation: Total time spent providing and/or coordinating discharge services: Exam Const: General: cooperative, healthy appearing and comfortable Nutritional Appearance: average body habitus Orientation/consciousness: oriented to person, oriented to place and oriented to time HENMT: Head: normal to inspection Resp: Effort & Inspection: normal respiratory effort Cardio: Rate: regular rate Rhythm: regular rhythm Heart sounds: S1 normal heart sound present and S2 normal heart sound present GI: Inspection: normal to inspection ( fundus firm below the umbilicus) DS: Data Data Completed and Pending Labs on day of discharge: Labs from last 24 hours 06/17/23 07:39 WBC 5.9 RBC 4.12 L Hgb 9.4 L Hct 30.5 L MCV 74.0 L MCH 22.8 L MCHC 30.8 L RDW 15.4 H Plt Count 176 MPV 11.9 H Immature Gran % (Auto) 0.8 H Neut % (Auto) 58.0 Lymph % (Auto) 20.4 [place] % (Auto) 15.7 H Eos % (Auto) 4.6 H Baso % (Auto) 0.5 Lymph # (Auto) 1.21 [place] # (Auto) 0.9 H Eos # (Auto) 0.3 Baso # (Auto) 0.0 Abs Immat Gran (auto) 0.05 H Absolute Neuts (auto) 3.4 Absolute Nucleated RBC 0.000 Nucleated RBC % 0.0 Platelet Estimate Adequate Poikilocytosis 1+ Tear Drop Cells 1+ Schistocytes Rare RPR Non-reactive Rubella IgG Antibody 44.5 Blood Type O Positive Antibody Screen Negative Discharge Plan Discharge Attending physician on discharge: Andrea Gregory Discharging Clinician: Andrea Gregory Patient Disposition: Home, Self-Care Activity: may shower and pelvic rest Diet: heart healthy Wound Care Instructions: follow printed instructions Discharge Instructions: Education: Mom and Baby Guide Given to: Mother Follow-Up: Call your delivering provider's office for an appointment to be seen in: 6 Weeks Mom and baby should come to the [facility] for the follow-up appointment. Appointment Date/Time: June 21, 2023 at 10:00 am What to expect at your follow-up visit: Blood Pressure Check Physical Assessment Call [phone] if you are unable to keep your appointment time. BREAST CARE: * Wear a snug supportive bra. * For engorgement discomfort: Bottle Feeding: * May apply ice packs EPISIOTOMY/PERINEAL CARE: * Until bleeding stops, use your re bottle after urinating * Change your pad frequently throughout the day * You may take sitz baths several times a day (fill your bathtub with warm water and soak for 20 minutes.) Do NOT bathe in the water * No tub baths until seen by your physician - You may shower ACTIVITY: * Rest as much as possible. * Do not exercise or lift anything heavier than your baby (such as laundry or other children.) * Avoid stairs or driving as much as possible. * Do not put anything into the vagina. No douching, tampons, or sexual activity until seen by physician. NOTIFY PHYSICIAN IF YOU HAVE ANY QUESTIONS OR IF ANY OF THE FOLLOWING SYMPTOMS OCCUR: * If your episiotomy or incision becomes red, swollen, or
[2023-06-17] MEDS: OXYTOCIN 30 UNITS/NS 500 ML 30 UNITS/500 ML BAG 125 UNITS IV CONT (14:22)
[2023-06-17] MEDS: IBUPROFEN 600 MG TABLET PO (15:13)
[2023-06-17] MEDS: WITCH HAZEL 40 PADS 1 PAD TOPICAL (15:58)
--- NOTE | 2023-06-17 16:15 | PC.NURSE ---
Patient transferred to post room #285 via wheelchair. Support person present. Oriented to unit, room, information board, rooming in, admission packet and security measures. Patient verbalizes understanding.
[2023-06-18] MEDS: ACETAMINOPHEN 325 MG TABLET 650 MG PO (00:16)
[2023-06-18 05:49] LABS: Hematocrit 29.1 % (37.0-47.0); Hemoglobin 8.9 g/dL (12.0-15.0)
--- NOTE | 2023-06-18 06:47 | PM.OBPNVD ---
OB - PN: Subj Subjective Date/time seen: 06/18/23 06:47 Patient comments: no complaints and pain well controlled baby status: doing well OB - PN: Obj Data Labs 06/18/23 05:20 Labs: Laboratory Results - last 24 hr 06/17/23 06/18/23 07:39 05:20 WBC 5.9 RBC 4.12 L Hgb 9.4 L 8.9 L Hct 30.5 L 29.1 L MCV 74.0 L MCH 22.8 L MCHC 30.8 L RDW 15.4 H Plt Count 176 MPV 11.9 H Immature Gran % (Auto) 0.8 H Neut % (Auto) 58.0 Lymph % (Auto) 20.4 [place] % (Auto) 15.7 H Eos % (Auto) 4.6 H Baso % (Auto) 0.5 Lymph # (Auto) 1.21 [place] # (Auto) 0.9 H Eos # (Auto) 0.3 Baso # (Auto) 0.0 Abs Immat Gran (auto) 0.05 H Absolute Neuts (auto) 3.4 Absolute Nucleated RBC 0.000 Nucleated RBC % 0.0 Platelet Estimate Adequate Poikilocytosis 1+ Tear Drop Cells 1+ Schistocytes Rare RPR Non-reactive Rubella IgG Antibody 44.5 Blood Type O Positive Antibody Screen Negative OB - PN A/P Plan day: 1 Plan: routine care Comments: start iron Time Spent With Patient Time: Total time spent is greater than 50% in coordination of care (as documented) at patient's floor/unit and/or counseling patient: Time with patient: less than 15 minutes Exam Const: General: cooperative, healthy appearing and comfortable Nutritional Appearance: average body habitus Orientation/consciousness: oriented to person, oriented to place and oriented to time Resp: Effort & Inspection: normal respiratory effort Cardio: Rate: regular rate Rhythm: regular rhythm Heart sounds: S1 normal heart sound present and S2 normal heart sound present GI: Inspection: normal to inspection
--- NOTE | 2023-06-18 08:01 | WPDANLDPN2 ---
Anes-Prog Note L&D Date/Time: 06/18/23 08:01 Comfortable throughout: labor and delivery Neuraxial method: epidural Epidural/Spinal procedure site: clean & non-tender Neuro status: Neuro function grossly intact. Cardiovascular status: normal Respiratory status: normal Airway patency: baseline Mental status: baseline Post-Op hydration status: normal Vital Signs: Last Vital Signs Temp 36.6 C 06/17/23 23:36 Pulse 70 06/17/23 23:36 Resp 16 06/17/23 23:36 BP 109/73 06/17/23 23:36 Pulse Ox 100 06/17/23 23:36 O2 Del Method Room Air 06/17/23 07:59 Pain score (VAS): 2 Post-procedural complaints: none Patient feedback: Patient satisfied with anesthetic care.
[2023-06-18 08:10] VITALS: BP 105/69; PULSE 57; RESP 16; TEMP 36.4; O2SAT 100
[2023-06-18] MEDS: DOCUSATE SODIUM 100 MG CAPSULE PO ×2 (08:40→17:09)
[2023-06-18] MEDS: IBUPROFEN 600 MG TABLET PO ×2 (08:40→17:08)
[2023-06-18] MEDS: POLYSACCHARIDE IRON COMPLEX 150 MG CAPSULE PO ×2 (08:41→17:09)
[2023-06-18 12:10] VITALS: BP 99/66; PULSE 74; RESP 16; TEMP 37.2; O2SAT 99
--- NOTE | 2023-06-18 12:40 | PC.NURSE ---
Patient to view the discharge video Mother & Baby Care, The First Two Weeks online. Patient was given the opportunity and encouraged to ask questions. Patient verbalized understanding of information shared and has been given the mother/baby guide for home reference.
[2023-06-18 22:14] VITALS: BP 105/62; PULSE 71; RESP 18; TEMP 36.8; O2SAT 97
[2023-06-19 09:00] VITALS: BP 109/72; PULSE 57; RESP 18; TEMP 36.8; O2SAT 98
[2023-06-19] MEDS: POLYSACCHARIDE IRON COMPLEX 150 MG CAPSULE PO (09:00)
[2023-06-19] MEDS: IBUPROFEN 600 MG TABLET PO (09:00)
[2023-06-19] MEDS: DOCUSATE SODIUM 100 MG CAPSULE PO (09:00)
--- NOTE | 2023-06-19 11:10 | PM.OBPNVD ---
OB - PN: Subj Subjective Date/time seen: 06/19/23 11:10 Patient comments: no complaints and pain well controlled baby status: doing well OB - PN: Obj Data Labs 06/18/23 05:20 OB - PN A/P Plan day: 2 Plan: routine care, discharge home and follow up 6 weeks Time Spent With Patient Time: Total time spent is greater than 50% in coordination of care (as documented) at patient's floor/unit and/or counseling patient: Exam : Bimanual exam- vagina & uterus: other (Uterus firm, nt @U)
[2023-06-21 10:24] VITALS: BP 107/75; PULSE 75; RESP 18; TEMP 37.1; O2SAT 100
== END 2023-06-19 13:32 | disposition home or self-care (01) | DRG 560 ==
LOC: ANHLDR 14:05 → ANHOB2 06-19 12:30 → ANHLDR 06-22 08:01 → ANHOB2 06-22 08:01
PROVIDERS: Admitting Provider Obstetrics & Gynecology; Visit Provider Obstetrics & Gynecology Gynecology
DX: O99.824 Streptococcus B carrier state complicating childbirth (principal); Z37.0 Single live birth; Z3A.39 39 weeks gestation of pregnancy; O62.3 Precipitate labor
CPT/HCPCS: 36415; 85014; 85018; 85025; 86592; 86762; 86850; 86900; 86901; A9270; J0290; J2590; J2795; J7120